=== PATIENT | male | born 1990 | race American Indian/Alaskan Native ===

== ENCOUNTER 2022-05-25 21:30 | Emergency (ER) | payer BC, OTHER ==
[2022-05-25] MEDS ORDERED: Ibuprofen 600 MG Tab PO ONE (22:10)
[2022-05-25] MEDS ORDERED: Amoxicillin/Clavulanate K 875-125 MG Tab PO ONE (22:10)
== END 2022-05-25 22:53 | disposition home or self-care (01) ==
LOC: MW.ED 21:30
DX: S41.152A Open bite of left upper arm, initial encounter (principal); W54.0XXA Bitten by dog, initial encounter
CPT/HCPCS: 73090; 99283; A9270

== ENCOUNTER 2024-02-21 15:54 | Emergency (ER) | payer OTHER | END 2024-02-21 18:57 | disposition home or self-care (01) | LOC: MW.ED 15:54 | DX: R07.9 Chest pain, unspecified (principal); M25.561 Pain in right knee; M25.562 Pain in left knee; Z75.8 Other problems related to medical facilities and other health care; V89.9XXA Person injured in unspecified vehicle accident, initial encounter | CPT/HCPCS: 71046; 71046-26; 735602650; 73560-50; 99284 ==